=== PATIENT | male | born 1960 | race Caucasian/White ===

== ENCOUNTER 2017-04-28 16:13 | Emergency (ER) | payer BC ==
[~2017-04-28 16:13] MED LIST: ZYRTEC-D ALG PO
[2017-04-28 17:58] LABS: BASOPHILS 0.4 %; BASOPHILS ABSOLUTE 0.03 10/3/uL (0.0-0.16); EOSINOPHILS 1.2 %; EOSINOPHILS ABSOLUTE 0.09 10/3/uL (0.0-0.53); HEMATOCRIT 43.8 % (40.0-51.0); HEMOGLOBIN 15.4 g/dL (13.6-17.8); IMMATURE GRANULOCYTES 0.1 %; IMMATURE GRANULOCYTES ABSOLUTE 0.01 10/3/uL (0.0-0.11); LYMPHOCYTES 22.7 %; LYMPHOCYTES ABSOLUTE 1.68 10/3/uL (0.67-4.30); MEAN CORPUS HGB CONC 35.2 g/dL (32.0-36.0); MEAN CORPUSCULAR VOLUME 90.9 fL (80-100); MONOCYTES 6.9 %; MONOCYTES ABSOLUTE 0.51 10/3/uL (0.21-1.20); NEUTROPHILS 68.7 %; NEUTROPHILS ABSOLUTE 5.08 10/3/uL (2.02-8.40); PLATELET COUNT 186 10/3/uL (150-400); RBC DISTRIBUTION WIDTH 12.4 % (12.0-16.0); RED CELL COUNT 4.82 10/6/uL (4.7-6.1); WHITE BLOOD CELLS 7.4 10/3/uL (4.5-10.5)
[2017-04-28 17:59] LABS: MANUAL DIFF NO %
[2017-04-28 18:13] LABS: ALBUMIN 3.3 G/DL (3.5-5.0); ALKALINE PHOSPHATASE 63 U/L (45-117); CHLORIDE, SERUM 107 MMOL/L (96-112); CO2 (CARBON DIOXIDE) 24 MMOL/L (24-34); CREATININE 0.78 MG/DL (0.70-1.30); GFR AFRICAN AMERICAN 119 ML/MIN (>=60); GFR NON AFRICAN AMERICAN 102 ML/MIN (>=60); GLOBULIN 3.3 G/DL (2.5-4.1); GLUCOSE, SERUM 87 MG/DL (60-99); POTASSIUM, SERUM 3.9 MMOL/L (3.5-5.3); SGOT(AST) 21 U/L (5-40); SGPT(ALT) 28 U/L (5-65); SODIUM, SERUM 140 MMOL/L (135-148); TOTAL BILIRUBIN 0.5 MG/DL (0-1.2); TOTAL PROTEIN 6.6 G/DL (6.0-8.5)
[2017-04-28 18:14] LABS: BUN (BLOOD UREA NITROGEN) 8 MG/DL (6-23)
[2017-04-28 18:54] LABS: WBC (NOT ORDERED) (RFLEX) 0 (0-5)
[2017-04-28 19:02] LABS: ASCORBIC ACID (UR NOT ORDER) NEG (NEG); BILIRUBIN, URINE NEGATIVE (NEG); ER URINALYSIS TAT 0 Hrs 08 Mins; KETONE, URINE 20 MG/DL (NEG); LEUKOCYTE ESTERASE(NOT OR NEG (NEG); NITRITE (URINE) NEG (NEG)
[2017-06-08] MEDS ORDERED: PROAIR HFA INH (16:28)
[2017-06-08] MEDS ORDERED: DYMISTA NASAL S23 GM NAS (16:28)
[2017-06-08] MEDS ORDERED: NEUR400 PO (16:29)
[2017-06-08] MEDS ORDERED: BENTYL20 PO (16:30)
[2017-06-08] MEDS ORDERED: FIORINALC PO (16:30)
[2017-06-08] MEDS ORDERED: CRESTOR5 MG PO (16:31)
[2017-06-08] MEDS ORDERED: AMIT10 PO (16:32)
[2017-06-08] MEDS ORDERED: TROKENDI PO (16:32)
[2017-06-08] MEDS ORDERED: PREV15 PO (17:22)
== END 2017-04-28 21:27 | disposition home or self-care (01) ==
LOC: ER 16:13
PROVIDERS: Emergency Medicine
DX: R10.11 Right upper quadrant pain (principal); G89.29 Other chronic pain; K21.9 Gastro-esophageal reflux disease without esophagitis; Z79.899 Other long term (current) drug therapy
CPT/HCPCS: 74176; 80053; 81001; 83690; 85025; 99284